=== PATIENT | male | born 1985 | race African-American/Black ===

== ENCOUNTER → 2019-05-31 | Outpatient (CLI) | payer BC ==
--- NOTE | 2019-05-31 08:51 | Diagnostic Imaging Report ---
INDICATION: Right hand pain. COMPARISON: None available. TECHNIQUE: 3 views of the right hand were obtained. FINDINGS: No fracture or traumatic malalignment. No radiopaque foreign body. Joint spaces are well-preserved. Mild soft tissue swelling in the ulnar aspect of the hand. IMPRESSION: No fracture or malalignment in the right hand. Dictated by: Dictated on workstation # [id number]
== END ==
LOC: RAD FS 08:34
PROVIDERS: ATTEND Nurse Practitioner Family
DX: M79.641 Pain in right hand (principal)
CPT/HCPCS: 73130

== ENCOUNTER → 2019-06-27 | Outpatient (CLI) | payer BC ==
--- NOTE | 2019-06-27 09:09 | Diagnostic Imaging Report ---
INDICATION: Followup right hand fracture. Time of exam: 9:00 a.m. Correlation is made with prior exam from 05/31/2019. Alignment is normal. Metacarpals are intact. No fracture is identified. There is no evidence of a healing fracture. In reviewing patient's prior radiographs, no fracture is identified. The phalanges are intact. Carpus is unremarkable. Distal radius and ulna are intact. IMPRESSION: No acute bony abnormality is detected. Dictated by: Dictated on workstation # [id number]
== END ==
LOC: RAD FS 08:56
PROVIDERS: ATTEND Nurse Practitioner
DX: S62.366D Nondisplaced fracture of neck of fifth metacarpal bone, right hand, subsequent encounter for fracture with routine healing (principal)
CPT/HCPCS: 73130